=== PATIENT | male | born 1980 | race Caucasian/White ===

== ENCOUNTER 2017-11-22 10:08 | Day surgery (SDC) | payer OTHER, BC ==
[2017-11-22] MEDS: LACTATED RINGER'S 1,000 ML IV* (11:06)
[2017-11-22] MEDS ORDERED: HEPARIN 1000 UNITS/ML 10 ML INJ (12:48)
[2017-11-22] MEDS ORDERED: hydrALAzine 20 MG INJ IV (13:00)
[2017-11-22] MEDS ORDERED: MEPERIDINE 25 MG INJ IV (13:00)
[2017-11-22] MEDS ORDERED: HYDROmorphONE 1 MG/5 ML IV SYRINGE IV ×3 (13:00)
[2017-11-22] MEDS ORDERED: ONDANSETRON 4 MG INJ IV ×2 (13:00)
[2017-11-22] MEDS ORDERED: AL HYDROX/MG HYDROX/SIMETH 30 ML CUP PO (13:00)
[2017-11-22] MEDS ORDERED: LABETALOL HCL 20MG INJ IV (13:00)
[2017-11-22] MEDS ORDERED: ACETAMINOPHEN 325 MG TAB PO (13:00)
[2017-11-22] MEDS ORDERED: ZOLPIDEM 5 MG TAB PO (13:00)
[2017-11-22] MEDS: CEFAZOLIN 1 GM/50 ML (PMX) 50 ML IVPB ×2 (13:00→21:07)
[2017-11-22] MEDS ORDERED: BISACODYL 10 MG SUPP PR (13:00)
[2017-11-22] MEDS ORDERED: NALOXONE (0.4 MG/ML) INJ IV (13:00)
[2017-11-22] MEDS ORDERED: DIPHENHYDRAMINE 50 MG INJ IV ×2 (13:00)
[2017-11-22] MEDS ORDERED: HYDROmorphONE 0.5 MG/0.5 ML SYG IV (13:00)
[2017-11-22] MEDS ORDERED: CYCLOBENZAPRINE 10 MG TAB PO (13:00)
[2017-11-22] MEDS ORDERED: ROCURONIUM 50 MG INJ ×2 (13:06→13:36)
[2017-11-22] MEDS ORDERED: MIDAZOLAM 1 MG/ML 2 ML INJ (13:06)
[2017-11-22] MEDS ORDERED: METOCLOPRAMIDE 10 MG INJ (13:06)
[2017-11-22] MEDS ORDERED: PROPOFOL 20 ML (13:06)
[2017-11-22] MEDS ORDERED: DEXAMETHASONE 4 MG/ML 1 ML INJ (13:07)
[2017-11-22] MEDS ORDERED: ACETAMINOPHEN 1000MG/100ML IV 100 ML (13:08)
[2017-11-22] MEDS ORDERED: FENTAnyl 50 MCG/ML VIAL (13:17)
[2017-11-22] MEDS ORDERED: CEFAZOLIN 1 GM INJ (13:17)
[2017-11-22] MEDS: CEFAZOLIN 2 GM/50 ML (PMX) 50 ML IVPB (13:21)
[2017-11-22] MEDS ORDERED: HYDROmorphONE 2 MG/ML SYG (13:36)
[2017-11-22] MEDS: SURGIFOAM POWDER 1 GM KIT (14:27)
[2017-11-22] MEDS: BUPIVACAINE 0.25%/EPI (SDV) 30 ML INJ (14:27)
[2017-11-22] MEDS: THROMBIN 5000 UNIT VIAL (14:27)
[2017-11-22] MEDS: POLYMYXIN/BACITRACIN 1L IRRIG (14:28)
[2017-11-22] MEDS: GELATIN SIZE 100 SPONGE (15:09)
[2017-11-22] MEDS ORDERED: GLYCOPYRROLATE 0.4 MG INJ (16:03)
[2017-11-22] MEDS ORDERED: NEOSTIGMINE 3 MG/3 ML SYRINGE (16:03)
[2017-11-22] MEDS: HYDROmorphONE 0.2 MG/ML PCA IV (16:49)
[2017-11-22] MEDS: D5W-0.45 NACL + KCL 20 MEQ 1,000 ML IV ×2 (18:44→22:37)
[2017-11-22] MEDS: DOCUSATE SODIUM 100 MG CAP PO (21:07)
[2017-11-23] MEDS: CEPASTAT LOZENGE MT ×3 (01:43→12:17)
[2017-11-23 05:17] LABS: ADD MAN DIFF? NO
[2017-11-23 05:24] LABS: BASOPHILS % 0.3 % (0.0-2.0); EOSINOPHILS % 0.1 % (0.0-7.0); HEMATOCRIT 41.5 % (42.0-52.0); HEMOGLOBIN 13.6 g/dl (14.0-18.0); LYMPHOCYTES # 1.3 10^3/ul (0.8-2.9); LYMPHOCYTES % 10.2 % (15.0-51.0); MEAN CORPUSCULAR HEMOGLOBIN 28.7 pg (29.0-33.0); MEAN CORPUSCULAR HGB CONC 32.8 g/dl (32.0-37.0); MEAN CORPUSCULAR VOLUME 87.6 fl (82.0-101.0); MONOCYTES % 7.8 % (0.0-11.0); NEUTROPHIL # 10.5 10^3/ul (1.6-7.5); NEUTROPHILS % 80.7 % (39.0-77.0); PLATELET COUNT 265 10^3/UL (140-415); RED BLOOD COUNT 4.74 10^6/ul (4.70-6.10); RED CELL DISTRIBUTION WIDTH 12.8 % (11.5-14.5)
[2017-11-23 05:24] LABS: WHITE BLOOD COUNT 13.1 10^3/ul (4.8-10.8)
[2017-11-23] MEDS: D5W-0.45 NACL + KCL 20 MEQ 1,000 ML IV (05:30)
[2017-11-23] MEDS: HYDROmorphONE 0.2 MG/ML PCA IV (05:33)
[2017-11-23 06:17] LABS: ANION GAP 13 (8-16); BLOOD UREA NITROGEN 12 mg/dl (7-20); CALCIUM 9.3 mg/dl (8.4-10.2); CARBON DIOXIDE 28 mmol/L (21-31); CHLORIDE 101 mmol/L (97-110); CREATININE 0.73 mg/dl (0.61-1.24); GLUCOSE 149 mg/dl (70-220); MAGNESIUM 1.6 mg/dl (1.7-2.5); SODIUM 138 mmol/L (135-144)
[2017-11-23] MEDS: CEFAZOLIN 1 GM/50 ML (PMX) 50 ML IVPB (08:40)
[2017-11-23] MEDS: DOCUSATE SODIUM 100 MG CAP PO (08:42)
[2017-11-23] MEDS ORDERED: HYDROCODONE/APAP (10/325) TAB PO (10:00)
[2017-11-23] MEDS: HYDROCODONE/APAP (10/325) TAB PO (10:15)
== END 2017-11-23 15:20 | disposition home or self-care (01) ==
LOC: SDS 10:08 → REC 12:37 → MS1 17:25 → REC 17:25 → SDS 12:36 → MS1 17:30
DX: M50.023 Cervical disc disorder at C6-C7 level with myelopathy (principal); M47.12 Other spondylosis with myelopathy, cervical region; J45.909 Unspecified asthma, uncomplicated
CPT/HCPCS: 63020; 72052; 80048; 83735; 85025; 97116; 97161; 97530